=== PATIENT | male | born 1985 | race Caucasian/White ===

== ENCOUNTER → 2018-05-02 | Outpatient (CLI) | payer OTHER ==
[~2018-05-02] MED LIST: IOPAMIDOL (ISOVUE-300) 100 ML BTL ONE
== END ==
LOC: CIMAGING 13:04
PROVIDERS: ATTEND Family Medicine
DX: M79.9 Soft tissue disorder, unspecified (principal); K40.90 Unilateral inguinal hernia, without obstruction or gangrene, not specified as recurrent; Z87.19 Personal history of other diseases of the digestive system
CPT/HCPCS: 72193-PO; Q9967